=== PATIENT | female | born 2000 | race Caucasian/White ===

== ENCOUNTER 2021-11-10 11:00 | Outpatient (CLI) | payer BC, SELFPAY ==
--- NOTE | 2021-11-10 | US_ITS ---
WS: [id number] OB ultrasound, 11/10/2021 Clinical Data: SUPERVISION OF NORMAL FIRST IN SECOND TRIMESTER Comparison: None. Findings: There is a single intrauterine in the breech presentation. The placenta is posterior and gr sury 0. There is a normal amount of amnionic fluid. The heart rate is 154 beats per minute. Measurements of growth and development: BPD: 4.9 cm 20 weeks 6 days HC: 18.1 cm 20 weeks 4 days AC: 15.9 cm 21 weeks 0 days FL: 3.5 cm 21 weeks 0 days The estimated weight is 390 or approximately 13 ounces. The estimated gestational age is 20 weeks 6 days with an PAXTON of approximately 03/24/2022. anatomy show a normal stomach, kidneys, bladder, cord insertion, three-vessel cord, entire spin e, four-chamber heart, lateral cerebral ventricles, cerebellum and cisterna magna. US/US OB >= 14 weeks fetus [id number] Impression: 1. Single intrauterine in breech presentation. 2. Estimated gestational age 20 weeks 6 days with an PAXTON of 03/24/2022. 3. heart rate 154 beats per minute.
== END 2021-11-10 11:01 | disposition home or self-care (01) ==
LOC: RADOUTREAD 11:04
PROVIDERS: PCP Internal Medicine; Visit Provider Family Medicine
DX: Z34.02 Encounter for supervision of normal first pregnancy, second trimester (principal)
CPT/HCPCS: 76805

== ENCOUNTER 2022-03-12 08:22 | Outpatient (CLI) | payer MEDICAID, SELFPAY ==
[2022-03-12 08:42] VITALS: BP 134/79; PULSE 112; RESP 16; TEMP 36.7
[2022-03-12 08:57] VITALS: BP 113/72; PULSE 96
[2022-03-12 09:48] VITALS: BP 110/71; PULSE 101
[2022-03-12 10:02] VITALS: BP 107/70; PULSE 94
[2022-03-12] MEDS: hyDROXYzine 25 mg Capsule 50 MG PO (10:13)
[2022-03-12 10:14] VITALS: RESP 16
[2022-03-12 10:19] VITALS: RESP 18
== END 2022-03-12 10:24 | disposition home or self-care (01) ==
LOC: OPOB 08:31 → OBGYN 08:32
PROVIDERS: PCP Internal Medicine; Visit Provider Family Medicine
DX: O26.899 Other specified pregnancy related conditions, unspecified trimester (principal); Z3A.00 Weeks of gestation of pregnancy not specified; R10.9 Unspecified abdominal pain
CPT/HCPCS: 59025; 99211

== ENCOUNTER 2022-03-12 21:59 | Inpatient (IN) | payer MEDICAID, SELFPAY ==
[2022-03-12] VITALS (18 sets, daily range): BP systolic 103–126; BP diastolic 72–88; PULSE 90–113; RESP 18; O2SAT 98; BMI 28.1
[2022-03-12] MEDS: lactated ringers 1,000 ML 999 ML IV ×2 (22:20→23:35)
[2022-03-12 22:44] LABS: Basophils % 0.2 %; Eosinophils % 0.2 %; Hematocrit 36.9 % (37.0-47.0); Hemoglobin 12.8 g/dL (11.5-15.3); Lymphocytes # 1.4 10^3/uL (0.8-4.8); Lymphocytes % 7.5 %; Mean Corpuscular HGB Conc 34.7 g/dL (30.0-36.0); Mean Corpuscular Hemoglobin 30.5 pg (28.0-34.0); Mean Corpuscular Volume 88.1 fl (81-99); Monocytes # 0.9 10^3/uL (0.2-0.9); Monocytes % 4.8 %; Neutrophils # 16.26 10^3/uL (1.8-7.7); Neutrophils % 86.8 %; Nucleated Red Blood Cells % 0 %; Platelet Count 255 10^3/cmm (130-400); Red Blood Count 4.19 10^6/uL (4.1-5.3); Red Cell Distribution Width 12.2 % (12.1-15.1); White Blood Count 18.7 10^3/uL (4.0-10.0)
--- NOTE | 2022-03-12 23:40 | ANES.PREANE2 ---
Pre-Anesthetic Assessment Height/Weight: Height 1.63 m Weight 74.389 kg Pulse Resp BP Pulse Ox 101 H 18 124/84 98 03/12/22 23:36 03/12/22 21:50 03/12/22 23:36 03/12/22 23:34 Preop Diagnosis: Labor pain BONITA Was Beta Wilder taken within 24 hours: N/A Was Clonidine taken within 24 hours: N/A Social No alcohol and No tobacco Exam alert, oriented x 3, clear to auscultation bilaterally and regular rate & rhythm Airway Submandibular: within normal limits Cervical ROM: within normal limits Mallampati: Class II Dentition: full Pulmonary None reported CV/HEM None reported None reported Hepatic None reported GI None reported Metabolic None reported Musc/skel None reported Neuropsych None reported Anesthetic Plan ASA status: 2 Anesthesia: Anesthesia Evaluation and Regional (specify below) Other: BONITA Risk of > 500 ml blood loss (7ml/kg in children): No Medications/Allergies Home Medications Medication Instructions Recorded Confirmed Last Taken Type vit no.95-ferrous 1 tab PO DAILY 03/12/22 03/12/22 2 Weeks Ago History fumarate 28 mg-folic acid 800 mcg ~02/26/22 tablet () Allergies Allergy/AdvReac Type Severity Reaction Status Date / Time No Known Allergies Allergy Verified 03/12/22 21:35 Current Medications Generic Name Dose Route Start Last Admin Trade Name Freq PRN Reason Stop Dose Admin Ropivacaine 200 mg in 100 mls @ 13 mls/hr 03/12/22 22:45 03/12/22 23:38 Naropin Premix EPIDURAL 13 mls/hr .Q7H42M MARKEL Administration Lactated Ringer's 1,000 mls @ 999 mls/hr 03/12/22 22:32 03/12/22 23:35 Lactated Ringers IV 999 mls/hr .Q1H1M PRN Administration See label comments PFSH Anesthesia Female Reproductive History : 1 Data Anesthesia : 03/12/22 22:15 Short CBC 03/12/22 Range/Units 22:15 WBC 18.7 H (4.0-10.0) 10^3/uL Hgb 12.8 (11.5-15.3) g/dL Hct 36.9 L (37.0-47.0) % MCV 88.1 (81-99) fl Plt Count 255 (130-400) 10^3/cmm Neut % (Auto) 86.8 % Neut # (Auto) 16.26 H (1.8-7.7) 10^3/uL Cardiac Studies: No Data to Display
--- NOTE | 2022-03-12 23:43 | ANES.PROC ---
Anesthesia Procedures Procedure/Date: 03/12/22 Epidural: Time Out Performed: Yes Consents Signed: Procedure Consent Consent: requested by attending/covering physician, from patient, risks and benefits reviewed and patient agrees to proceed Lumbar Level: L3-L4 Epidural position: sitting Epidural procedure: sterile prep of area, 1% lidocaine to numb the area, 18 g needle, neg for paresthesia, test dose given (3cc of 2% lido c 1:200k epi neg), 0.2% Ropivacaine bolus ml (4cc and Fentanyl 100mcg), placed PCEA, no systemic response, sterile dressing applied, L.U.D. no apparent complications and 0.2% Ropiavacaine @ mls/hr (13cc/hour. CHANDLER at 6cm. Pt tolerated well)
[2022-03-13] VITALS (96 sets, daily range): BP systolic 76–139; BP diastolic 43–89; PULSE 82–127; RESP 14–16; TEMP 36.6–37.9; O2SAT 99
[2022-03-13] MEDS: dextrose 5%-lactated ringers 1,000 ML 125 ML IV ×4 (02:10→15:13)
[2022-03-13] MEDS: oxytocin 30 UNIT/500 ML BAG 300 UNIT IV (15:41)
[2022-03-13] MEDS: lidocaine 2% INJ 20 mL INJECTION (16:11)
--- NOTE | 2022-03-13 16:43 | PM.OPHPUD ---
Labor & Delivery H&P Update Date of Procedure: March 13, 2022 Date H&P Performed: 03/09/22 Admission Diagnosis: 22-year-old 1 at 38 weeks estimated gestational age presenting in active labor Preop diagnosis: Labor pain Planned procedure: Spontaneous vaginal delivery Other information: The patient presented to the hospital in active labor. She been having contractions for several hours prior to arriving at the hospital. There is no leaking of fluid or concerned about ruptured membranes. The baby has been moving normally. Her labs were largely unremarkable. Her blood type is O+. Her antibody screen was negative. Her glucose screen was negative. The remainder of her labs including infectious disease panel were within normal limits.
--- NOTE | 2022-03-13 16:45 | PM.DELIVERY ---
Delivery Note: Date of delivery: March 13, 2022 Pre-delivery diagnoses: 22-year-old 1 at 38 weeks estimated gestational age presenting in active labor Post-delivery diagnoses: Same Procedure: Spontaneous vaginal delivery Delivering Physician: Kenton Mahan Estimated blood loss (mL): 200 Pre-Delivery Course: The patient presented to the hospital in active labor. An epidural was placed. An amniotomy was performed. She progressed to complete without difficulty. Delivery: DELIVERY: The patient progressed to complete without difficulty. She delivered a female with a weight of 6 pounds 15 ounces with Apgars of 9, 9. The baby was delivered from the KYLIE position and placed on the mother's abdomen. The cord was then clamped and cut. There was no nuchal cord. There was no meconium. The placenta and 3 vessel cord were delivered intact shortly thereafter. The perineum and vaginal vault were carefully examined. A laceration was noted on the left labia minora which was repaired with 3-0 Vicryl. She also had a posterior midline first-degree laceration which was also repaired with 3-0 Vicryl. Both the mother and the baby were in stable condition. Post-Delivery Status: Good A&P Assessment and plan (1) 38 weeks gestation of : (2) Spontaneous vaginal delivery: Coding Level of Care Code Acute Recruitment Director for Chg Fwd Diagnoses 38 weeks gestation of Z3A.38 Spontaneous vaginal delivery O80
[2022-03-13] MEDS: ibuprofen 800 mg tablet PO (22:06)
[2022-03-13] MEDS: docusate sodium 100 mg Capsule PO (22:06)
[2022-03-14 01:49] VITALS: BP 104/71; PULSE 79; RESP 14
[2022-03-14 05:14] LABS: Hematocrit 32.9 % (37.0-47.0); Hemoglobin 11.3 g/dL (11.5-15.3); Mean Corpuscular HGB Conc 34.3 g/dL (30.0-36.0); Mean Corpuscular Hemoglobin 30.6 pg (28.0-34.0); Mean Corpuscular Volume 89.2 fl (81-99); Platelet Count 193 10^3/cmm (130-400); Red Blood Count 3.69 10^6/uL (4.1-5.3); Red Cell Distribution Width 12.3 % (12.1-15.1); White Blood Count 14.1 10^3/uL (4.0-10.0)
--- NOTE | 2022-03-14 07:08 | PM.OBGYDC ---
Discharge Providers MEDICAL SERVICE REPRESENTATIVE Date of Admission: 03/12/22 21:59 Date of Discharge: 03/14/22 Attending Provider at Admission: Kenton Mahan MD Attending Provider at Discharge: Kenton Mahan MD Diagnoses at Discharge Discharge Diagnosis (1) 38 weeks gestation of : Status: Acute (2) Spontaneous vaginal delivery: Status: Acute Reason for Visit Reason for Visit: CONTRACTIONS Hospital Course Hospital Course The patient presented to the hospital in active labor. An epidural was placed. An amniotomy was performed. She progressed to complete and had an unremarkable delivery of a healthy female . Her course has been unremarkable. Her bleeding has been within normal limits. Her pain is been well controlled. She has been breast-feeding well. There have been no concerns. Information Peripartum Data: Infant Delivery Method: Vaginal Physical Exam Narrative: The patient is alert. She appears comfortable. Her heart has a regular rate and rhythm with no murmurs appreciated. Lungs are clear to auscultation bilaterally. Her fundus is firm and below the umbilicus. Urinary Catheter Management: Denis Latex: Cath Placed During This Visit: yes, but has since been removed by the nurse Reason for Continuing Indwelling Catheter: Required Immobilization for Trauma or Surgery or Anesthesia Urinary Catheter Date of Insertion: 03/13/22 Urinary Catheter Time of Insertion: 00:31 Date Urinary Catheter Removed: 03/13/22 Time Urinary Catheter Discontinued: 15:45 Discharge Data Studies Completed and Pending Laboratory Results WBC 14.1 10^3/uL (4.0-10.0) H 03/14/22 05:05 RBC 3.69 10^6/uL (4.1-5.3) L 03/14/22 05:05 Hgb 11.3 g/dL (11.5-15.3) L 03/14/22 05:05 Hct 32.9 % (37.0-47.0) L 03/14/22 05:05 MCV 89.2 fl (81-99) 03/14/22 05:05 MCH 30.6 pg (28.0-34.0) 03/14/22 05:05 MCHC 34.3 g/dL (30.0-36.0) 03/14/22 05:05 RDW 12.3 % (12.1-15.1) 03/14/22 05:05 Plt Count 193 10^3/cmm (130-400) 03/14/22 05:05 MPV 10.0 fL (7.4-10.4) 03/14/22 05:05 Neut % (Auto) 86.8 % 03/12/22 22:15 Lymph % (Auto) 7.5 % 03/12/22 22:15 Howard % (Auto) 4.8 % 03/12/22 22:15 Eos % (Auto) 0.2 % 03/12/22 22:15 Baso % (Auto) 0.2 % 03/12/22 22:15 Neut # (Auto) 16.26 10^3/uL (1.8-7.7) H 03/12/22 22:15 Lymph # (Auto) 1.4 10^3/uL (0.8-4.8) 03/12/22 22:15 Howard # (Auto) 0.9 10^3/uL (0.2-0.9) 03/12/22 22:15 Eos # (Auto) 0.0 10^3/uL (0.0-0.8) 03/12/22 22:15 Baso # (Auto) 0.0 10^3/uL (0.0-0.1) 03/12/22 22:15 Nucleated RBC % (auto) 0 % 03/12/22 22:15 Nucleated RBCs # 0.0 /100WBC 03/12/22 22:15 Vitals Last Vital Signs Temp 98.3 F 03/13/22 19:49 Pulse 79 03/14/22 01:49 Resp 14 03/14/22 01:49 BP 104/71 03/14/22 01:49 Pulse Ox 99 03/13/22 18:19 O2 Del Method 03/13/22 18:19 Discharge Plan Discharge Patient Disposition: Home Condition: Stable Prescriptions: New ibuprofen 800 mg Tablet 800 mg PO TID Qty: 45 0RF Continued 28 mg iron- 800 mcg Tablet 1 tab PO DAILY Discharge Orders: Discharge Order (Routine); Ordered 03/14/22 Ordered By: Kenton Mahan Referrals: Kenton Mahan MD [Physician] - 6 Weeks Discharge Diet: Usual diet Discharge Activity: Limit activity as instructed Patient Instructions: Opioid Safety Discharge Attestations MEDICAL SERVICE REPRESENTATIVE Time Spent in Discharge Care*: less than 30 min Coding Level of Care Code Acute Bus Mechanic for Chg Fwd Diagnoses 38 weeks gestation of Z3A.38 Spontaneous vaginal delivery O80
[2022-03-14] MEDS: prenatal vitamin Capsule 1 CAP PO (09:06)
[2022-03-14] MEDS: docusate sodium 100 mg Capsule PO (09:06)
[2022-03-14] MEDS: ibuprofen 800 mg tablet PO ×2 (09:06→15:34)
[2022-03-14 09:30] VITALS: BP 107/72; PULSE 80; RESP 17; TEMP 36.7
--- NOTE | 2022-03-14 14:32 | ANE.PACU2 ---
Inpatient post-anesthesia follow up: Airway intact: Yes Vital signs: Temperature 98.3 F Pulse Rate 79 Respiratory Rate 14 Blood Pressure 104/71 Pulse Oximetry 99 Oxygen Delivery Me thod Room Air Oxygen Flow Rate Fraction of Inspir ed Oxygen Hydration adequate: Yes Nausea and vomiting: No Pain level: 1 Mental status: Baseline
[2022-03-14 17:00] VITALS: BP 121/73; PULSE 80; RESP 17
[2022-03-14 18:30] VITALS: BP 120/72; PULSE 80; RESP 17; TEMP 36.8
[2022-03-14 18:45] VITALS: BP 120/72; PULSE 80; RESP 17; TEMP 36.8
== END 2022-03-14 18:45 | disposition home or self-care (01) | DRG 807 ==
LOC: OPOB 21:59 → OBGYN 21:59
PROVIDERS: Admitting Provider Family Medicine; PCP Internal Medicine; Visit Provider Family Medicine
DX: O70.0 First degree perineal laceration during delivery (principal); Z37.0 Single live birth; Z3A.38 38 weeks gestation of pregnancy
CPT/HCPCS: 12345; 36415; 51702; 59025; 59409; 85025; 85027; 96374; 99211; J2795; J3010

== ENCOUNTER 2025-04-20 14:23 | Emergency (ER) | payer SELFPAY ==
--- OUTSIDE RECORDS SUMMARY | 2025-04-20 14:30 | XMS_ITS | Data Portability ---
Author Organization [facility], [place], [facility] Address [address] [address] Assessment No assessment recorded. Plan of Treatment Reminders Order Date Submit Date Provider Last Modified By Organization Details Last Modified Time Details Appointments ULTRASO UND 2024 01:00P M ULTRASOUND Not available Not available Not available Lab pregnan cy test, urine 2023 024 [email or web address] [facility] ([facility]), [address] [place], [address], 11/09/2023 13:17:43 Referral None recorde d. Procedures None recorde d. Surgeries None recorde d. Imaging None recorde d. Medication Orders Nexplan on 68 mg subderm al implant 2023 024 [email or web address] Not available 07/15/2024 10:11:35 Patient TargetsNo targets recorded. Patient InstructionsNo instructions recorded. Reason for Referral None Reported. Results Created Date Observation Date Name Description Value Unit Range Abnormal Flag Note LastModifiedBy Organization Detail LastModifiedTime 11/07/19 24 11/07/2023 pregn debra test, urine HCG negati ve Not Available [facility] ([facility]) [address] [place], [address], 11/07/2023 12:41:21 Result Notes None recorded. Problems Name Problem SNOMED Code Status Onset Date Resolution Date Notes Provider Name and Address Organization Details Recorded Time [id number] Active 025 MANASA samson, [facility], [place] 14:57:18 Problem Notes None recorded. Procedures Surgical History Date Name Laterality Status Provider Name and Address Organization Details Recorded Time 5 Nexplanon Removal completed Taniya Brennan MD [address] [place], [address], [facility], [place] 07/15/2024 10:42:02 4 Nexplanon Insertion completed Taniya Brennan MD [address] [place], [address], [facility], [place] 11/07/2023 15:04:39 Imaging Results None recorded. Procedure Notes None recorded. Medical Equipment None Reported. Allergies No known drug allergies Medications Name Sig Start Date Stop Date Status Note LastModified by Organization Details LastModified Time Vitamin qd 11/06 completed 0; Recorded 04/25/20 22 2:21PM by Manasa Martínez RN, Office Visit; Not Available Not Available Not Available Nexplanon 68 mg subdermal implant Inject 1 implant by subcutan eous route. 07/15 completed Not Available Not Available Not Available Vitals Date Recorded Body height Body mass index (BMI) Body weight Body temperature Oxygen saturation Oxygen saturation in Arterial blood by Pulse oximetry Heart rate Systolic And Diastolic Provider Name and Address Organization Details Last Updated DateTime 5 162.56 cm 29.5 kg/m2 08096.8 9 g 97.4 [degF] 98 % 98 % 70 /min 114/70 mm[Hg] NATHANAEL COLE [facility], L[facility]ilio[facility] 5 10:10:36 Date Recorded Body weight Body mass index (BMI) Body height Body temperature Oxygen saturation Oxygen saturation in Arterial blood by Pulse oximetry Heart rate Systolic And Diastolic Provider Name and Address Organization Details Last Updated DateTime 4 28103.0 3 g 30.7 kg/m2 162.56 cm 98.1 [degF] 99 % 99 % 88 /min 115/80 mm[Hg] JOE ACUNA [facility] 12:08:22 Date Recorded Body height Body mass index (BMI) Body weight Body temperature Oxygen saturation Oxygen saturation in Arterial blood by Pulse oximetry Heart rate Respiratory rate Systolic And Diastolic Provider Name and Address Organization Details Last Updated DateTime 5 162.56 cm 28.5 kg/m2 35075.0 3 g 98.3 [degF] 98 % 98 % 96 /min 18 /min 120/86 mm[Hg] MANASA MARTÍNEZ [facility], [facility]ilio 15:01:32 Social History Question Answer Notes LastModified by Organizat ion Details LastModified Time Tobacco Smoking Status Never Smoker JOE samson [facility], [facility] 11/07/2023 12:09:30 What Was The Date Of Your Most Recent Tobacco Screening? 04/16/2025 Information not available 04/16/2025 What Is Your Relationship Status? Information not available 04/16/2025 Sex: Unknown Functional Status Question Answer Note LastModified by Organization D etails LastModified Time Do you or have you ever used any other forms of tobacco or nicotine? No Information not available 04/16/2025 What is your level of alcohol consumption? None [email or web address] Information not available 04/16/2025 Mental Status None recorded. Family History Nothing Reported. Medical History Condition Response Coronary Artery Disease N Other N Gout N Kidney Stones N Blood Diseases N Hyperthyroidism N Breast Cancer N Blood Transfusion N Depression N Hypothyroidism N Lung Disease N COPD N Developmental or Behavioral Disorders N Defects or Inherited Disease N Breast Problem N Difficulty Swallowing N Anesthesia Complications N Anxiety Disorder N Meniere's disease N Muscle, Joint, or Bone Problems N Vision or Eye Problems N Arthritis N Infertility N Polyps N Cancer N Stroke N Varicosities N Endometriosis N Bladder or Kidney Problems N High Cholesterol N Liver Disease N Fibromyalgia N Headaches N Kidney Disease N Allergies/Hayfever N Heart Problems N Ear or Hearing Problems N Hospitalizations N Thyroid Problems N GI Problems N ADD/ADHD N Skin Problems N Eating Disorder N Anemia N Constipation N Mental Illness N Ovarian Cancer N Diabetes N Bedwetting N Seizures/Epilepsy N Tuberculosis N Eczema N Diverticulitis N Abuse/Domestic Violence N Asthma N Reflux/GERD N Hepatitis N Heart Disease N Pulmonary Embolism N Pre-Eclampsia N Hypertension N Chronic Ear Infections N Osteoporosis N Chicken Pox N Autism Spectrum Disorder (ASD) N Thrombophilias N Gynecological History Statement/Question Response Date of LMP 03/09/2025 LMP Definite Obstetrics History GPAL:G 2 P 0 0 0 1 Type Value Spontaneous 0 Living 1 Total 2 Immunizations Vaccine Type Date Status Note Provider Nam e and Address Organization Details Recorded Time Tdap 2 completed JOE samson [facility], [place] 11/07/2023 12:08:41 DTaP 9 completed Not Available [facility] 04/16/2025 14:51:30 polio, unspecified formulation 9 completed Not Available [facility] 04/16/2025 14:51:30 DTaP 9 completed Not Available [facility] 04/16/2025 14:51:30 DTaP 0 completed Not Available [facility] 04/16/2025 14:51:30 DTaP 0 completed Not Available [facility] 04/16/2025 14:51:30 IPV 0 completed Not Available [facility] 04/16/2025 14:51:30 Hib (PRP-T) 0 completed Not Available [facility] 04/16/2025 14:51:30 MMR 0 completed Not Available [facility] 04/16/2025 14:51:30 Tdap 4 completed Not Available [facility] 04/16/2025 14:51:30 meningococcal MCV4P 4 completed Not Available [facility] 04/16/2025 14:51:30 Meningococcal MCV4O 7 completed Not Available [facility] 04/16/2025 14:51:30 Past Encounters Encounter ID Performer Location Encounter Start Date Encounter Closed Date Diagnosis/Indication Diagnosis SNOMED-CT Code Diagnosis ICD10 Code Diagnosis IMO Codes Diagnosis Note [id number] Taniya Brennan MD [facility] ([facility]) [address] [place] [address] 11/07/2023 11:46:24 11/07/2023 15:46:15 Contraception care management 214487238 Z30.9 Insertion of intrauterine contraceptive device 11036934 Z30.430 nexplanon inserted. [id number] Taniya Brennan MD [facility] ([facility]) [address] [place] [address] 07/15/2024 10:05:35 07/17/2024 08:30:46 Removal of subcutaneous contraceptive 153747175 Z30.46 Health Concerns Section Related Observation LastModified by Organization Detai ls LastModified Time None Recorded Concern Status LastModified by Organization Details LastModified Time None Recorded Advance Directives Directive None Recorded Payers Insurance Date Sequence Insurance Name Policy Number Policy De Dios Covered Member ID De Dios Member ID Guarantor Name 11/07/2023 1 *SELF PAY* Doreen Jones Notes Date Note Type Note Provider Name and Address Organization Details Recorded Time 11/07/2023 text/html ROS as noted in the HPI would like nexplanon. Taniya Brennan MD [address] [place] [address], [phone], [facility] 11/07/2023 15:06:27 07/15/2024 text/html nexplanon removalready to get Taniya Brennan MD [address] [place] [address], [phone], [facility] 07/15/2024 10:42:40 04/16/2025 text/html Vaginal/Vulvar ProblemReported by PatientHPIFor associated symptoms, patient reportspelvic painandabnormal dischargebut reportsno feverandno vaginal odor. For location, patient reportsvagina. For severity, patient reportsmoderate. For context, patient reportssexually active. Bleeding after positive test Not Available Not Available Not Available OBGyn Episode Ob Episode Information Episode Created Date Number of Fetuses Patient Bloodtype Patient rh Status Prepregnancy Weight lbs Domestic Partner Domestic Partner Phone Father Name Tax Collector Status 04/16/20 25 1 OPEN Fetus Data First Name Last Name Admitted to NICU Weight (g) Sex Living Outcome Pediatric Complications Fetus ID Race Codes Race Delivery Type [id number] Stevie Calculation Initial Stevie Date Initial Exam Date Initial Exam Provider Initial Ultrasound Date Last Menstrual Period Date Ultra Sound Weeks Gestation 04/16/2025 03/09/2025 0 Eighteen To Twenty Week Stevie Update Ultra Sound Date Fundal Height At Umbil Quickening Date Ultra Sound Latest Weeks Gestation Final Stevie Confirmed By Final Stevie Confirmed Date Final Stevie Date Ultra Sound Latest Days Gestation 0 12/15/19 26 0 Pre- Flowsheet Flowsheet Date 04/16/2025 Taylor Score Blood Edema Fundus Height Fundus Units Glucose Ketones Leukocytes Nitrite Labor Signs Protein Cervic Dilation Cervic Effacement Cervic Station Type Weight in lbs Pre/Post Dialysis Refused Weight 166.697895158251 BP Diastolic BP Location Tested BP Systolic BP Type 86 120 Fetus Heart Rate Present Fetus Movement Comments spotting x2 days, cramping, pelvic pain Menstrual History Last Menstrual Date Menses Monthly On Bcp Conception Prior Menses Frequency Hcg Plus Date Menarche Onset Age 0903/09/20[birth year] Delivery Information Delivery Date Delivery Type Labor Anesthesia Weeks Gestation Incision Type Labor Labor Length Hrs Delivered By Post Complications Tubal Sterilization Discharge Date Comments Discharge Information Feeding Method Contraceptive Method Maternal HG B and HCT Levels
--- NOTE | 2025-04-20 14:32 | USR_ITS ---
PROCEDURE INFORMATION: Exam: US Pelvis, Transvaginal, Non-Obstetric Exam date and time: 04/20/2025 2:47 PM Age: 25 years old Clinical indication: Other: Bleeding; 76.3 hcg; Additional info: Heavy bleeding, 6 weeks preg TECHNIQUE: Imaging protocol: Real-time transvaginal pelvic (non-obstetric) ultrasound with image documentation. Transvaginal imaging was used for better evaluation of the endometrium, adnexa, and/or cervix. COMPARISON: US transvaginal [id number] 09/05/2018 11:05 AM FINDINGS: Uterus: The endometrium is heterogeneous and thickened measuring 1.7 cm in thickness. It is not hypervascular. Small amount of fluid in the endocervical canal. Otherwise, unremarkable uterus. Right ovary/adnexa: 1.8 cm right ovarian cyst could be a corpus luteum. Otherwise, normal-appearing right ovary with normal blood flow. No solid right adnexal masses. Left ovary/adnexa: The left ovary is not identified. No solid left adnexal mass is identified. Urinary bladder: Not evaluated. Gestation: No gestational sac or fluid collection is identified in the uterine cavity. Intraperitoneal space: No free fluid identified. US/US transvaginal [id number] IMPRESSION: 1. No gestational sac or fluid collection is identified in the uterine cavity. This could be a failed intrauterine or a very early intrauterine . Consider follow-up with serial beta HCG and ultrasound as clinically warranted. 2. The endometrium is heterogeneous and thickened measuring 1.7 cm in thickness. It is not hypervascular. 3. Small amount of fluid in the endocervical canal. 4. 1.8 cm right ovarian cyst could be a corpus luteum. 5. No obvious ectopic .
[2025-04-20 14:33] VITALS: BP 128/82; PULSE 103; RESP 16; TEMP 37.3; O2SAT 100
[2025-04-20 14:49] LABS: Hematocrit 40.8 % (36-47); Hemoglobin 14.10 g/dL (11.27-16.99); Mean Corpuscular HGB Conc 34.6 g/dL (30-55); Mean Corpuscular Hemoglobin 29.4 pg (27-33); Mean Corpuscular Volume 85.0 fl (85-98); Nucleated Red Blood Cells % 0 %; Platelet Count 277 10^3/cmm (157-399); Red Blood Count 4.80 10^6/uL (3.85-5.65); White Blood Count 9.85 10^3/uL (3.29-11.43)
--- NOTE | 2025-04-20 15:15 | ED_ITS ---
Documented by User: [email or web address] Giles 04/20/25 17:59 HPI - Female Genitourinary 2 General: Chief complaint: Vaginal Bleeding Stated complaint: heavy bleeding Time Seen by Provider: 04/20/25 14:27 Source: patient Mode of arrival: ambulatory Limitations: no limitations History of Present Illness: Patient is a 25-year-old female G 2P1 presenting stating she is 6 weeks , has had sudden onset heavy vaginal bleeding today. States that her confirmed by hCG levels, which are being monitored by her LEDGER POSTER. Notes that with the bleeding that started just prior to coming in, has noticed some brown discharge and few clots passage. Has had no previous issues with bleeding, her prior was normal and full-term, vaginal delivery. Patient denies feeling she is going to pass out, any chest pain or shortness of breath, however is noting some lower abdominal pain. No nausea or vomiting. No abdominal trauma. No history of bleeding disorder. Pain in the low abdomen is nonradiating. MD elicited complaint: vaginal bleeding and possible miscarriage Onset (ago): hour(s) Severity: severe Vaginal discharge: other (brown) Vaginal bleeding: heavy and clots Associated symptoms: Reports abdominal pain and vaginal discharge; Deny headache(s) or nausea Related Data Home Medications ?Medication ?Instructions ?Recorded ?Confirmed No Known Home Medications 04/20/2503/06 Allergies Allergy/AdvReac Type Severity Reaction Status Date / Time No Known Allergies Allergy Verified 03/12/22 21:35 Review of Systems 2 General: Reports: 10 or more systems reviewed and unremarkable except in HPI and below Const: Denies: fever(s), chills, change in appetite, change in weight or diaphoresis ENMT: Denies: throat pain or hoarseness Card: Denies: chest pain, palpitations or lightheadedness Resp: Denies: dyspnea, productive cough or wheezing GI: Reports: abdominal pain; Denies: nausea, vomiting, diarrhea, constipation, bloating, change in stool character or hematochezia : Reports: vaginal bleeding, vaginal discharge and other (); Denies: flank pain, difficulty voiding, dysuria, urinary frequency or urinary urgency Musc: Denies: neck pain or back pain Skin/Breast: Denies: rash or new lesions Neuro: Denies: headache(s) or dizziness Physical Exam 2 Const: COMMON NORMALS: no acute distress, patient oriented x3, no limitations, alert and well nourished GENERAL APPEARANCE: cooperative O RIENTATION/CONSCIOUSNESS: Yes awake OTHER: tearful Neck/C-Spine: COMMON NORMALS: full ROM, supple and no meningeal signs Resp: COMMON NORMALS: normal respiratory effort, No retractions, No use of accessory muscles and clear to auscultation bilaterally AUSCULTATION: clear to auscultation bilaterally, no crackles, no rales, no rhonchi and no wheezes Cardio: COMMON NORMALS: regular rate, regular rhythm, No gallops present (Cardio), No clicks present (Cardio), No murmurs present (Cardio) and No rub (Cardio) RATE: regular rate RHYTHM: regular rhythm GI: COMMON NORMALS: Normal to inspection, nondistended, normoactive bowel sounds present, Soft to palpation, No hepatosplenomegaly present and no masses AUSCULTATION: Yes normoactive bowel sounds PALPATION: Yes Soft to palpation, Yes Tenderness to palpation present (GI) Details: LLQ and RLQ, No Guarding due to palpation present (GI), No Rigid due to palpation and Yes No hepatosplenomegaly present RECTAL EXAM: deferred Extremity: COMMON NORMALS: normal to inspection and full ROM Neuro: COMMON NORMALS: patient oriented x3, moves all extremities, no focal motor deficits and no sensory deficits noted SENSORIUM/ORIENTATION: Yes alert MENINGEAL SIGNS: Yes no meningeal signs Psych: COMMON NORMALS: mental status grossly normal, cooperative and speech normal SPEECH: Yes normal speech Skin: COMMON NORMALS: no rashes or lesions noted GENERAL SKIN EXAM: no rashes or lesions noted Course 2 Vital Signs: Vital signs: Vital Signs Temperature 99.1 F 04/20/25 14:33 Pulse Rate 97 04/20/25 15:30 Respiratory Rate 16 04/20/25 14:33 Blood Pressure 111/68 04/20/25 16:00 Pulse Oximetry 96 04/20/25 16:00 Oxygen Delivery Me thod Room Air 04/20/25 16:00 MDM - Female Medical Decision Making Patient presented with sudden onset vaginal bleeding, stating she is 6 weeks and is having her beta-hCG levels monitored with LEDGER POSTER. Mild lower abdominal pain had been reported as well, states that she had only blood through her underwear and this is how she quantifies it, mild passage of clots. Hemodynamically stable at time of examination. Blood work is unremarkable, her hemoglobin is normal, but most concerning is her hCG has further decreased from 127 to 76 in the past few days. This is coupled with ultrasound transvaginal that shows no gestational sac in the uterine cavity, and this is representing spontaneous miscarriage. Patient is informed of these findings, and she is to follow-up with LEDGER POSTER for reevaluation and to return with any fevers or other concerns that she has. Lab Data 04/20/25 14:41 04/20/25 14:41 Radiology Impressions Transvaginal US 04/20/25 14:32 IMPRESSION: 1. No gestational sac or fluid collection is identified in the uterine cavity. This could be a failed intrauterine or a very early intrauterine . Consider follow-up with serial beta HCG and ultrasound as clinically warranted. 2. The endometrium is heterogeneous and thickened measuring 1.7 cm in thickness. It is not hypervascular. 3. Small amount of fluid in the endocervical canal. 4. 1.8 cm right ovarian cyst could be a corpus luteum. 5. No obvious ectopic . Laboratory Results WBC 9.85 10^3/uL (3.29-11.43) 04/20/25 14:41 RBC 4.80 10^6/uL (3.85-5.65) 04/20/25 14:41 Hgb 14.10 g/dL (11.27-16.99) 04/20/25 14:41 Hct 40.8 % (36-47) 04/20/25 14:41 MCV 85.0 fl (85-98) 04/20/25 14:41 MCH 29.4 pg (27-33) 04/20/25 14:41 MCHC 34.6 g/dL (30-55) 04/20/25 14:41 RDW 11.7 % (12.1-15.1) L 04/20/25 14:41 Plt Count 277 10^3/cmm (157-399) 04/20/25 14:41 MPV 9.2 fL (7.4-10.4) 04/20/25 14:41 Neut % (Auto) 70.8 % 04/20/25 14:41 Lymph % (Auto) 20.7 % 04/20/25 14:41 Harris % (Auto) 5.5 % 04/20/25 14:41 Eos % (Auto) 2.4 % 04/20/25 14:41 Baso % (Auto) 0.2 % 04/20/25 14:41 Neut # (Auto) 6.97 10^3/uL (1.8-7.7) 04/20/25 14:41 Lymph # (Auto) 2.0 10^3/uL (0.8-4.8) 04/20/25 14:41 Harris # (Auto) 0.5 10^3/uL (0.2-0.9) 04/20/25 14:41 Eos # (Auto) 0.2 10^3/uL (0.0-0.8) 04/20/25 14:41 Baso # (Auto) 0.0 10^3/uL (0.0-0.1) 04/20/25 14:41 Nucleated RBC % (auto) 0 % 04/20/25 14:41 Nucleated RBCs # 0.0 /100WBC 04/20/25 14:41 Sodium 138 mmol/L (136-145) 04/20/25 14:41 Potassium 3.9 mmol/L (3.5-5.1) 04/20/25 14:41 Chloride 103 mmol/L (98-107) 04/20/25 14:41 Carbon Dioxide 25 mmol/L (22-29) 04/20/25 14:41 Anion Gap 13.9 (5-19) 04/20/25 14:41 BUN 7 mg/dL (6-20) 04/20/25 14:41 Creatinine 0.8 mg/dL (0.5-0.9) 04/20/25 14:41 GFR Calculation 86.7 mL/min (90-130) L 04/20/25 14:41 Glucose 109 mg/dL (65-115) 04/20/25 14:41 Calculated Osmolality 285 mOsm/kg (285-295) 04/20/25 14:41 Calcium 9.0 mg/dL (8.5-10.5) 04/20/25 14:41 Total Bilirubin 0.2 mg/dL (0.15-1.2) 04/20/25 14:41 AST 18 U/L (0-32) 04/20/25 14:41 ALT 27 U/L (0-33) 04/20/25 14:41 Alkaline Phosphatase 80 U/L (35-105) 04/20/25 14:41 Total Protein 6.9 g/dL (6.6-8.7) 04/20/25 14:41 Albumin 4.6 g/dL (3.5-5.2) 04/20/25 14:41 Globulin 2.3 g/dL (1.3-4.6) 04/20/25 14:41 Ser , Semi-Qnt 76.30 mIU/mL 04/20/25 14:41 Urine Color Yellow (Yellow) 04/20/25 15:24 Urine Appearance Clear (CLEAR) 04/20/25 15:24 Urine pH 5.0 (5-7) 04/20/25 15:24 Ur Specific [place] 1.025 (1.005-1.030) 04/20/25 15:24 Urine Protein Negative (Negative) 04/20/25 15:24 Urine Glucose (UA) Negative (Normal) 04/20/25 15:24 Urine Ketones Trace (Negative) 04/20/25 15:24 Urine Blood 1+ (Negative) A 04/20/25 15:24 Urine Nitrate Negative (Negative) 04/20/25 15:24 Urine Bilirubin Negative (Negative) 04/20/25 15:24 Urine Urobilinogen 1.0 mg/dL (Negative) 04/20/25 15:24 Ur Leukocyte Esterase Negative (Negative) 04/20/25 15:24 Urine RBC 0-2 /hpf (0-2) 04/20/25 15:24 Urine WBC 0-5 /hpf (0-5) 04/20/25 15:24 Ur Squamous Epith Cells 0-5 /hpf (0-5) 04/20/25 15:24 Amorphous Sediment Not Reportable 04/20/25 15:24 Urine Bacteria None seen /hpf (NONE) 04/20/25 15:24 Hyaline Casts 0.40 /lpf 04/20/25 15:24 Blood Type O Positive 04/20/25 14:41 Rho(D) Type Rh positive 04/20/25 14:41 Antibody Screen Negative 04/20/25 14:41 All radiology interpretation(s) finalized by discharge Discharge Plan Discharge Patient Disposition: Home Clinical Impression: Spontaneous miscarriage Condition: Stable Prescriptions: No Action No Known Home Medications Discharge Orders: Discharge ED (Routine); Ordered 04/20/25 Ordered By: Ramiro Castellano Referrals: Kenton Mahan MD [Primary Care Provider, [facility]] Patient Instructions: Opioid Safety, Pain Management, Patient Portal & Meenakshi Instructions Activity Restrictions/Additional Instructions: Missed Discharge You have been diagnosed with a missed miscarriage, which means the stopped developing but your body has not yet passed the tissue. This is a common experience and not caused by anything you did or did not do. What to expect: - You may continue to have vaginal bleeding and cramping as your body passes the tissue. - Most women complete the miscarriage naturally within 2 weeks, but it can take longer for some. - You may be offered different management options: expectant (waiting for natural passage), medical (medication to help pass tissue), or surgical (procedure to remove tissue). All are safe and effective; your choice depends on your preferences and medical situation. What to watch for: Call your doctor or go to the emergency room if you experience any of the following: - Heavy bleeding (soaking more than 2 pads per hour for 2 hours) - Severe abdominal pain not relieved by [id number] pain medicine - Fever over 100.4?F (38?C) or chills - Foul-smelling vaginal discharge - Feeling faint, dizzy, or weak Self-care: - Rest as needed and avoid strenuous activity until bleeding stops. - Use pads, not tampons, until bleeding has stopped to reduce infection risk. - You may take acetaminophen or ibuprofen for pain, as directed. - Avoid sexual intercourse until bleeding has stopped. Emotional support: Miscarriage can be emotionally difficult. It is normal to feel sad, angry, or confused. Support from family, friends, or counseling can help. Follow-up: - Schedule a follow-up visit with your LEDGER POSTER or primary care provider within 1- 2 weeks, or sooner if you have concerns. - Your doctor may check to make sure the miscarriage is complete and discuss future plans or answer any questions. Future fertility: Most women go on to have healthy pregnancies in the future. There is no need to delay trying to conceive unless advised by your doctor. If you have any questions or concerns, please contact your healthcare provider. Print Language: Greek Coding Level of Care Code ED Blind Installer for Chg Fwd Documented by User: Gianluca Brown DO 04/20/25 18:05 HPI - Female Genitourinary 2 General: Chief complaint: Vaginal Bleeding Stated complaint: heavy bleeding Time Seen by Provider: 04/20/25 14:27 Related Data Home Medications ?Medication ?Instructions ?Recorded ?Confirmed No Known Home Medications 04/20/2503/06 Allergies Allergy/AdvReac Type Severity Reaction Status Date / Time No Known Allergies Allergy Verified 03/12/22 21:35 Course 2 Vital Signs: Vital signs: Vital Signs Temperature 99.1 F 04/20/25 14:33 Pulse Rate 97 04/20/25 15:30 Respiratory Rate 16 04/20/25 14:33 Blood Pressure 111/68 04/20/25 16:00 Pulse Oximetry 96 04/20/25 16:00 Oxygen Delivery Me thod Room Air 04/20/25 16:00 MDM - Female Medical Decision Making Patient presented with sudden onset vaginal bleeding, stating she is 6 weeks and is having her beta-hCG levels monitored with LEDGER POSTER. Mild lower abdominal pain had been reported as well, states that she had only blood through her underwear and this is how she quantifies it, mild passage of clots. Hemodynamically stable at time of examination. Blood work is unremarkable, her hemoglobin is normal, but most concerning is her hCG has further decreased from 127 to 76 in the past few days. This is coupled with ultrasound transvaginal that shows no gestational sac in the uterine cavity, and this is representing spontaneous miscarriage. Patient is informed of these findings, and she is to follow-up with LEDGER POSTER for reevaluation and to return with any fevers or other concerns that she has. Chart reviewed and patient discussed with midlevel. Agree with assessment and plan. Lab Data 04/20/25 14:41 04/20/25 14:41 Radiology Impressions Transvaginal US 04/20/25 14:32 IMPRESSION: 1. No gestational sac or fluid collection is identified in the uterine cavity. This could be a failed intrauterine or a very early intrauterine . Consider follow-up with serial beta HCG and ultrasound as clinically warranted. 2. The endometrium is heterogeneous and thickened measuring 1.7 cm in thickness. It is not hypervascular. 3. Small amount of fluid in the endocervical canal. 4. 1.8 cm right ovarian cyst could be a corpus luteum. 5. No obvious ectopic . Laboratory Results WBC 9.85 10^3/uL (3.29-11.43) 04/20/25 14:41 RBC 4.80 10^6/uL (3.85-5.65) 04/20/25 14:41 Hgb 14.10 g/dL (11.27-16.99) 04/20/25 14:41 Hct 40.8 % (36-47) 04/20/25 14:41 MCV 85.0 fl (85-98) 04/20/25 14:41 MCH 29.4 pg (27-33) 04/20/25 14:41 MCHC 34.6 g/dL (30-55) 04/20/25 14:41 RDW 11.7 % (12.1-15.1) L 04/20/25 14:41 Plt Count 277 10^3/cmm (157-399) 04/20/25 14:41 MPV 9.2 fL (7.4-10.4) 04/20/25 14:41 Neut % (Auto) 70.8 % 04/20/25 14:41 Lymph % (Auto) 20.7 % 04/20/25 14:41 Harris % (Auto) 5.5 % 04/20/25 14:41 Eos % (Auto) 2.4 % 04/20/25 14:41 Baso % (Auto) 0.2 % 04/20/25 14:41 Neut # (Auto) 6.97 10^3/uL (1.8-7.7) 04/20/25 14:41 Lymph # (Auto) 2.0 10^3/uL (0.8-4.8) 04/20/25 14:41 Harris # (Auto) 0.5 10^3/uL (0.2-0.9) 04/20/25 14:41 Eos # (Auto) 0.2 10^3/uL (0.0-0.8) 04/20/25 14:41 Baso # (Auto) 0.0 10^3/uL (0.0-0.1) 04/20/25 14:41 Nucleated RBC % (auto) 0 % 04/20/25 14:41 Nucleated RBCs # 0.0 /100WBC 04/20/25 14:41 Sodium 138 mmol/L (136-145) 04/20/25 14:41 Potassium 3.9 mmol/L (3.5-5.1) 04/20/25 14:41 Chloride 103 mmol/L (98-107) 04/20/25 14:41 Carbon Dioxide 25 mmol/L (22-29) 04/20/25 14:41 Anion Gap 13.9 (5-19) 04/20/25 14:41 BUN 7 mg/dL (6-20) 04/20/25 14:41 Creatinine 0.8 mg/dL (0.5-0.9) 04/20/25 14:41 GFR Calculation 86.7 mL/min (90-130) L 04/20/25 14:41 Glucose 109 mg/dL (65-115) 04/20/25 14:41 Calculated Osmolality 285 mOsm/kg (285-295) 04/20/25 14:41 Calcium 9.0 mg/dL (8.5-10.5) 04/20/25 14:41 Total Bilirubin 0.2 mg/dL (0.15-1.2) 04/20/25 14:41 AST 18 U/L (0-32) 04/20/25 14:41 ALT 27 U/L (0-33) 04/20/25 14:41 Alkaline Phosphatase 80 U/L (35-105) 04/20/25 14:41 Total Protein 6.9 g/dL (6.6-8.7) 04/20/25 14:41 Albumin 4.6 g/dL (3.5-5.2) 04/20/25 14:41 Globulin 2.3 g/dL (1.3-4.6) 04/20/25 14:41 Ser , Semi-Qnt 76.30 mIU/mL 04/20/25 14:41 Urine Color Yellow (Yellow) 04/20/25 15:24 Urine Appearance Clear (CLEAR) 04/20/25 15:24 Urine pH 5.0 (5-7) 04/20/25 15:24 Ur Specific [place] 1.025 (1.005-1.030) 04/20/25 15:24 Urine Protein Negative (Negative) 04/20/25 15:24 Urine Glucose (UA) Negative (Normal) 04/20/25 15:24 Urine Ketones Trace (Negative) 04/20/25 15:24 Urine Blood 1+ (Negative) A 04/20/25 15:24 Urine Nitrate Negative (Negative) 04/20/25 15:24 Urine Bilirubin Negative (Negative) 04/20/25 15:24 Urine Urobilinogen 1.0 mg/dL (Negative) 04/20/25 15:24 Ur Leukocyte Esterase Negative (Negative) 04/20/25 15:24 Urine RBC 0-2 /hpf (0-2) 04/20/25 15:24 Urine WBC 0-5 /hpf (0-5) 04/20/25 15:24 Ur Squamous Epith Cells 0-5 /hpf (0-5) 04/20/25 15:24 Amorphous Sediment Not Reportable 04/20/25 15:24 Urine Bacteria None seen /hpf (NONE) 04/20/25 15:24 Hyaline Casts 0.40 /lpf 04/20/25 15:24 Blood Type O Positive 04/20/25 14:41 Rho(D) Type Rh positive 04/20/25 14:41 Antibody Screen Negative 04/20/25 14:41 Discharge Plan Discharge Patient Disposition: Home Clinical Impression: Spontaneous miscarriage Condition: Stable Prescriptions: No Action No Known Home Medications Discharge Orders: Discharge ED (Routine); Ordered 04/20/25 Ordered By: Ramiro Castellano Referrals: Kenton Mahan MD [Primary Care Provider, [facility]] Patient Instructions: Opioid Safety, Pain Management, Patient Portal & Meenakshi Instructions Activity Restrictions/Additional Instructions: Missed Discharge You have been diagnosed with a missed miscarriage, which means the stopped developing but your body has not yet passed the tissue. This is a common experience and not caused by anything you did or did not do. What to expect: - You may continue to have vaginal bleeding and cramping as your body passes the tissue. - Most women complete the miscarriage naturally within 2 weeks, but it can take longer for some. - You may be offered different management options: expectant (waiting for natural passage), medical (medication to help pass tissue), or surgical (procedure to remove tissue). All are safe and effective; your choice depends on your preferences and medical situation. What to watch for: Call your doctor or go to the emergency room if you experience any of the following: - Heavy bleeding (soaking more than 2 pads per hour for 2 hours) - Severe abdominal pain not relieved by [id number] pain medicine - Fever over 100.4?F (38?C) or chills - Foul-smelling vaginal discharge - Feeling faint, dizzy, or weak Self-care: - Rest as needed and avoid strenuous activity until bleeding stops. - Use pads, not tampons, until bleeding has stopped to reduce infection risk. - You may take acetaminophen or ibuprofen for pain, as directed. - Avoid sexual intercourse until bleeding has stopped. Emotional support: Miscarriage can be emotionally difficult. It is normal to feel sad, angry, or confused. Support from family, friends, or counseling can help. Follow-up: - Schedule a follow-up visit with your LEDGER POSTER or primary care provider within 1- 2 weeks, or sooner if you have concerns. - Your doctor may check to make sure the miscarriage is complete and discuss future plans or answer any questions. Future fertility: Most women go on to have healthy pregnancies in the future. There is no need to delay trying to conceive unless advised by your doctor. If you have any questions or concerns, please contact your healthcare provider. Print Language: Greek Coding Level of Care Code ED Blind Installer for Andry Bennett
[2025-04-20 15:19] VITALS: BP 118/83; PULSE 102; O2SAT 97
[2025-04-20 15:23] LABS: Alanine Aminotransferase 27 U/L (0-33); Albumin Level 4.6 g/dL (3.5-5.2); Alkaline Phosphatase 80 U/L (35-105); Anion Gap 13.9 (5-19); Aspartate Amino Transferase 18 U/L (0-32); Blood Urea Nitrogen 7 mg/dL (6-20); Calcium 9.0 mg/dL (8.5-10.5); Carbon Dioxide 25 mmol/L (22-29); Chloride 103 mmol/L (98-107); Creatinine Clr Calc Pharmacy 104.0497; Globulin 2.3 g/dL (1.3-4.6); Glucose 109 mg/dL (65-115); Osmolality Calculated 285 mOsm/kg (285-295); Potassium 3.9 mmol/L (3.5-5.1); Sodium 138 mmol/L (136-145); Total Protein 6.9 g/dL (6.6-8.7)
[2025-04-20 15:30] VITALS: BP 104/65; PULSE 97; O2SAT 98
[2025-04-20 15:34] LABS: Glucose Urine UA Negative (Normal); Nitrate Urine Negative (Negative); Specific Gravity, Urine 1.025 (1.005-1.030)
[2025-04-20 15:39] LABS: Add Urine Microscopic? YES
[2025-04-20 16:00] VITALS: BP 111/68; O2SAT 96
== END 2025-04-20 17:05 | disposition home or self-care (01) ==
PROVIDERS: Emergency Provider Physician Assistant; PCP Family Medicine
DX: O03.9 Complete or unspecified spontaneous abortion without complication (principal)
CPT/HCPCS: 36415; 76830; 80053; 81001; 84702; 85025; 86850; 86900; 99284